=== PATIENT | female | born 1950 | race Caucasian/White ===

== ENCOUNTER 2023-01-28 08:51 | Outpatient (RCR) | payer MEDICARE, BC, SELFPAY | END 2023-01-28 23:59 | disposition home or self-care (01) | LOC: RPT 08:51 | PROVIDERS: ATTENDING PHYSICIAN Family Medicine; PRIMARYCARE PHYSICIAN Student in an Organized Health Care Education/Training Program | DX: S76.811D Strain of other specified muscles, fascia and tendons at thigh level, right thigh, subsequent encounter (principal); R26.89 Other abnormalities of gait and mobility | CPT/HCPCS: 97110; 97112; 97162 ==

== ENCOUNTER → 2023-03-21 11:59 | Outpatient (REF) | payer MEDICARE, BC, SELFPAY | LOC: RAD 11:59 | PROVIDERS: ATTENDING PHYSICIAN Family Medicine | DX: J45.909 Unspecified asthma, uncomplicated (principal); J06.9 Acute upper respiratory infection, unspecified | CPT/HCPCS: 71046 ==

== ENCOUNTER 2023-08-12 17:01 | Outpatient (RCR) | payer MEDICARE, BC, SELFPAY | END 2023-08-12 23:59 | disposition home or self-care (01) | LOC: RPT 17:01 | PROVIDERS: ATTENDING PHYSICIAN Student in an Organized Health Care Education/Training Program | DX: M76.891 Other specified enthesopathies of right lower limb, excluding foot (principal); Z73.6 Limitation of activities due to disability | CPT/HCPCS: 97110; 97112; 97162 ==

== ENCOUNTER → 2023-09-05 15:20 | Outpatient (REF) | payer MEDICARE, BC, SELFPAY | LOC: WDC 15:20 | PROVIDERS: ATTENDING PHYSICIAN Student in an Organized Health Care Education/Training Program | DX: Z87.891 Personal history of nicotine dependence (principal); Z12.31 Encounter for screening mammogram for malignant neoplasm of breast | CPT/HCPCS: 71271; 77063; 77067 ==

== ENCOUNTER 2023-09-12 14:03 | Outpatient (RCR) | payer MEDICARE, BC, SELFPAY | END 2023-09-12 23:59 | disposition home or self-care (01) | LOC: RPT 14:03 | PROVIDERS: ATTENDING PHYSICIAN Student in an Organized Health Care Education/Training Program | DX: M76.891 Other specified enthesopathies of right lower limb, excluding foot (principal); Z73.6 Limitation of activities due to disability | CPT/HCPCS: 97110; 97112; 97140 ==

== ENCOUNTER 2023-10-10 15:04 | Outpatient (RCR) | payer MEDICARE, BC, SELFPAY | END 2023-10-10 23:59 | disposition home or self-care (01) | LOC: RPT 15:04 | PROVIDERS: Student in an Organized Health Care Education/Training Program; ATTENDING PHYSICIAN Emergency Medicine | DX: M76.891 Other specified enthesopathies of right lower limb, excluding foot (principal); Z73.6 Limitation of activities due to disability | CPT/HCPCS: 97110; 97116; 97140 ==

== ENCOUNTER 2023-11-03 15:55 | Outpatient (RCR) | payer MEDICARE, BC, SELFPAY | END 2023-11-03 23:59 | disposition home or self-care (01) | LOC: RPT 15:55 | PROVIDERS: ATTENDING PHYSICIAN Emergency Medicine | DX: M76.891 Other specified enthesopathies of right lower limb, excluding foot (principal); Z73.6 Limitation of activities due to disability; R26.89 Other abnormalities of gait and mobility; M62.81 Muscle weakness (generalized) | CPT/HCPCS: 97110; 97140; 97530 ==

== ENCOUNTER → 2024-02-27 13:22 | Outpatient (REF) | payer MEDICARE, BC, SELFPAY | LOC: RAD 13:22 | PROVIDERS: ATTENDING PHYSICIAN Emergency Medicine | DX: M25.651 Stiffness of right hip, not elsewhere classified (principal); M25.652 Stiffness of left hip, not elsewhere classified; M51.361 Other intervertebral disc degeneration, lumbar region with lower extremity pain only | CPT/HCPCS: 72110 ==

== ENCOUNTER → 2024-09-27 13:00 | Outpatient (REF) | payer MEDICARE, BC, SELFPAY | LOC: WDC 13:00 | PROVIDERS: ATTENDING PHYSICIAN Emergency Medicine | DX: Z12.31 Encounter for screening mammogram for malignant neoplasm of breast (principal) | CPT/HCPCS: 77063; 77067 ==

== ENCOUNTER → 2024-10-06 12:49 | Outpatient (REF) | payer MEDICARE, BC, SELFPAY | LOC: HWRAD 12:49 | PROVIDERS: ATTENDING PHYSICIAN Emergency Medicine | DX: Z87.891 Personal history of nicotine dependence (principal); R91.1 Solitary pulmonary nodule | CPT/HCPCS: 71271 ==

== ENCOUNTER → 2024-10-11 13:37 | Outpatient (REF) | payer MEDICARE, BC, SELFPAY | LOC: RAD 13:37 | PROVIDERS: ATTENDING PHYSICIAN Emergency Medicine | DX: M85.89 Other specified disorders of bone density and structure, multiple sites (principal) | CPT/HCPCS: 77080 ==